=== PATIENT | male | born 1960 ===

== ENCOUNTER → 2018-11-05 13:27 | Outpatient (REF) | payer OTHER, SELFPAY | LOC: LAB 13:27 | PROVIDERS: Visit Provider Otolaryngology | DX: H72.90 Unspecified perforation of tympanic membrane, unspecified ear (principal); H92.01 Otalgia, right ear; Z51.89 Encounter for other specified aftercare | CPT/HCPCS: 87070; 87077; 87147; 87186; 87205 ==